=== PATIENT | male | born 1945 | race Caucasian/White ===

== ENCOUNTER 2016-11-14 20:59 | Emergency (ER) | payer MEDICARE, MEDICAID ==
[~2016-11-14] VITALS: Ht 170.2 cm; Wt 85.0 kg
[2016-11-14 21:07] VITALS: Ht 170.2 cm; Wt 85.0 kg
--- NOTE | 2016-11-14 22:17 | RADRPT ---
PROCEDURE: XR Chest. CLINICAL INDICATION: Shortness of breath. TECHNIQUE: Single frontal view. COMPARISON: None. FINDINGS: There is mild atelectasis at the lung bases. The lungs are otherwise clear. The heart size is normal. There is no pleural effusion. There is no pneumothorax. IMPRESSION: 1. Mild atelectasis at the lung bases. 2. Otherwise normal chest x-ray. RPTAT: QQ .Jacinto Lopez MD, MD Date Time Electronically viewed and signed by .Jacinto Lopez MD, MD on 11/14/2016 22:17 .R/
[2016-11-14 22:18] LABS: ADD SCAN DIFF NO
[2016-11-14 22:25] LABS: BASOPHIL # 0.1 10^3/ul (0.0-0.1); BASOPHILS % 0.8 % (0.0-2.0); EOSINOPHILS # 0.7 10^3/ul (0.0-0.5); EOSINOPHILS % 9.3 % (0.0-7.0); HEMATOCRIT 41.1 % (42.0-52.0); HEMOGLOBIN 13.9 g/dl (14.0-18.0); LYMPHOCYTES # 1.7 10^3/ul (0.8-2.9); LYMPHOCYTES % 23.2 % (15.0-51.0); MEAN CORPUSCULAR HEMOGLOBIN 29.4 pg (29.0-33.0); MEAN CORPUSCULAR HGB CONC 33.8 g/dl (32.0-37.0); MEAN CORPUSCULAR VOLUME 86.9 fl (82.0-101.0); MEAN PLATELET VOLUME 10.3 fl (7.4-10.4); MONOCYTE # 0.5 10^3/ul (0.3-0.9); MONOCYTES % 7.1 % (0.0-11.0); NEUTROPHIL # 4.5 10^3/ul (1.6-7.5); NEUTROPHILS % 59.2 % (39.0-77.0); PLATELET COUNT 258 10^3/UL (140-415); RED BLOOD COUNT 4.73 10^6/ul (4.70-6.10); RED CELL DISTRIBUTION WIDTH 14.1 % (11.5-14.5); WHITE BLOOD COUNT 7.5 10^3/ul (4.8-10.8)
[2016-11-14 22:41] LABS: CALCIUM 9.8 mg/dl (8.4-10.2); CREATININE 1.56 mg/dl (0.61-1.24); POTASSIUM 3.4 mmol/L (3.5-5.1)
[2016-11-14 22:53] LABS: B-TYPE NATRIURETIC PEPTIDE 80 PG/ML (0-125)
[2016-11-14 23:01] VITALS: BP 122/84; PULSE 70; RESP 17
[2016-11-14 23:10] LABS: TROPONIN-I < 0.012 ng/ml (0.00-0.12)
--- NOTE | 2016-11-14 23:20 | ERD ---
ER Documentation Chief Complaint Date/Time DATE: 11/14/16 TIME: 23:19 Chief Complaint Cough for 3 weeks, hx of PNA and CP after cough HPI This is a 70-year-old male cough for 3 weeks. Patient has history of pneumonia a month ago. Treated without outpatient antibiotics. Continues to have minimal cough. No fevers no chills. Patient says his chest lopez hurt from coughing. No midline or left-sided chest pain. More in the rib areas. Mild to moderate intensity. No fevers no chills. No sick contacts. No other current complaints. ROS All systems reviewed and are negative except as per history of present illness. Allergies Allergies: Coded Allergies: Penicillins (Verified Allergy, Intermediate, 11/14/16) tetracycline (Verified Allergy, Intermediate, 11/14/16) morphine (Verified Allergy, Mild, 11/14/16) Physical Exam Vitals Vital Signs Date Time Temp Pulse Resp B/P Pulse Ox O2 Delivery O2 Flow Rate FiO2 11/14/16 23:01 70 17 122/84 95 Room Air 11/14/16 21:07 98.8 84 20 113/72 96 Physical Exam Const: [] Head: Atraumatic Eyes: Normal Conjunctiva ENT: Normal External Ears, Nose and Mouth. Neck: Full range of motion..~ No meningismus. Resp: Clear to auscultation bilaterally Cardio: Regular rate and rhythm, no murmurs Abd: Soft, non tender, non distended. Normal bowel sounds Skin: No petechiae or rashes Back: No midline or flank tenderness Ext: No cyanosis, or edema Neur: Awake and alert Psych: Normal Mood and Affect Result Diagram: 11/14/16220511/14/162205 Results 24 hrs Laboratory Tests Test 11/14/16 22:06 White Blood Count 7.510^3/ul Red Blood Count 4.7310^6/ul Hemoglobin 13.9g/dl Hematocrit 41.1% Mean Corpuscular Volume 86.9fl Mean Corpuscular Hemoglobin 29.4pg Mean Corpuscular Hemoglobin Concent 33.8g/dl Red Cell Distribution Width 14.1% Platelet Count 69803^3/UL Mean Platelet Volume 10.3fl Neutrophils % 59.2% Lymphocytes % 23.2% Monocytes % 7.1% Eosinophils % 9.3% Basophils % 0.8% Nucleated Red Blood Cells % 0.0/100WBC Neutrophils # 4.510^3/ul Lymphocytes # 1.710^3/ul Monocytes # 0.510^3/ul Eosinophils # 0.710^3/ul Basophils # 0.110^3/ul Nucleated Red Blood Cells # 0.010^3/ul Sodium Level 146mmol/L Potassium Level 3.4mmol/L Chloride Level 99mmol/L Carbon Dioxide Level 29mmol/L Anion Gap 21 Blood Urea Nitrogen 27mg/dl Creatinine 1.56mg/dl Glucose Level 98mg/dl Calcium Level 9.8mg/dl Troponin I < 0.012ng/ml B-Type Natriuretic Peptide 80PG/ML Procedures/MDM EKG: Rate/Rhythm: [Normal Sinus Rhythm] QRS, ST, T-waves: [No changes consistent w/ acute ischemia] Impression: [No evidence of ischemia or arrhythmia] Chest X-ray 1V Interpreted by me: Soft Tissue: No acute abnormalities Bones: No acute abnormalities Mediastinum/Cardiac Silhouette/Lungs: Atelectasis in both lung bases Medical decision-makin-year-old male with mild bronchitis. At this point clinically stable for outpatient management. Patient be discharged home with albuterol, prednisone, Tessalon. Follow with PCP. Return for worsening symptoms. Departure Diagnosis: Primary Impression: Cough Additional Impressions: Acute renal failure Acute renal failure type: unspecified Qualified Code: N17.9 - Acute renal failure, unspecified acute renal failure type Bronchitis Hypernatremia Hypokalemia Condition: Stable BARBER LEONARD Nov 14, 2016 23:20
[2016-11-14] MEDS ORDERED: AZIT250T94 PO (23:23)
[2016-11-14] MEDS ORDERED: PRED20TA PO (23:23)
[2016-11-14] MEDS ORDERED: BENZ100C70 PO (23:23)
[2016-11-14] MEDS ORDERED: ALBU18HF INHALATION (23:23)
== END 2016-11-14 23:45 | disposition home or self-care (01) ==
LOC: E/R 20:59
DX: R05 Cough (principal); N17.9 Acute kidney failure, unspecified; J20.9 Acute bronchitis, unspecified; E87.0 Hyperosmolality and hypernatremia; E87.6 Hypokalemia; R40.2142 Coma scale, eyes open, spontaneous, at arrival to emergency department; R40.2252 Coma scale, best verbal response, oriented, at arrival to emergency department; R40.2362 Coma scale, best motor response, obeys commands, at arrival to emergency department; R06.02 Shortness of breath
CPT/HCPCS: 36415; 71010; 80048; 83880; 84484; 85025; 93005